=== PATIENT | male | born 1945 | race Caucasian/White ===

== ENCOUNTER 2019-10-30 18:42 | Inpatient (IN) | payer MEDICARE, MEDICAID, OTHER ==
[2019-10-30] MEDS ORDERED: Bisacodyl 5 MG TAB PO PRN (20:51)
[2019-10-30] MEDS ORDERED: Senokot S 8.6-50 MG TAB PO PRN (20:51)
[2019-10-30] MEDS: Atorvastatin Calcium 40 MG TAB PO SCH (21:22)
[2019-10-30] MEDS: Famotidine 20 MG TAB PO SCH (21:23)
[2019-10-31] MEDS: Levothyroxine Sodium 112 MCG TAB PO SCH (05:21)
[2019-10-31 05:40] LABS: #Monocytes 0.3 thou/uL (0.11-0.59); #Neutrophils 3.2 thou/uL (1.40-6.50); %Basophils 0.7 % (0.0-1.0); %Eosinophils 0.1 % (0.0-10.0); %Lymphocytes 22.2 % (21.0-51.0); %Monocytes 5.7 % (0.0-10.0); %Neutrophils 71.2 % (42.0-75.0); Hemoglobin 14.4 g/dL (14.0-18.0); Mean Corpuscular HGB CONC 32.5 g/dL (32.0-36.0); Mean Corpuscular Hemoglobin 31.1 pg (27.0-31.0); Mean Corpuscular Volume 95.6 fL (78.0-98.0); Mean Platelet Volume 12.9 fL (7.4-10.4); Platelet Count 81 thou/uL (130-400); Platelet Morphology Comment Appears Decreased; RBC Distribution Width 10.7 % (11.5-14.5); RBC Morphology Normal; Red Blood Cell (RBC) Count 4.65 mill/uL (4.70-6.10); White Blood Cell (WBC) Count 4.4 thou/uL (4.8-10.8)
[2019-10-31 05:49] LABS: ALT (SGPT) 37 U/L (8-55); AST (SGOT) 35 U/L (5-34); Albumin 3.1 g/dL (3.4-4.8); Alkaline Phosphatase 66 U/L (40-110); Anion Gap 14 mmol/L (10-20); BUN (Urea Nitrogen) 18 mg/dL (8.4-25.7); Bilirubin, Total 0.4 mg/dL (0.2-1.2); Calc. Creatinine Clearance 92 mL/min (70-130); Carbon Dioxide 24 mmol/L (23-31); Chloride 102 mmol/L (98-107); Estimated GFR-MDRD 80; Globulin 2.9 g/dL (2.4-3.5); Glucose 105 mg/dL (83-110); Potassium 3.3 mmol/L (3.5-5.1); Sodium 137 mmol/L (136-145)
[2019-10-31] MEDS ORDERED: busPIRone HCl 5 MG TAB PO SCH (09:00)
[2019-10-31] MEDS ORDERED: Enoxaparin Sodium 40 MG/0.4 ML SYRINGE SC SCH (09:00)
[2019-10-31] MEDS ORDERED: Amlodipine 5 MG TAB PO SCH (09:00)
[2019-10-31] MEDS ORDERED: Potassium Chloride 20 MEQ TAB PO SCH (09:00)
[2019-10-31] MEDS: Famotidine 20 MG TAB PO SCH ×2 (10:03→20:56)
[2019-10-31] MEDS: Acetaminophen 325 MG TAB PO PRN ×2 (10:04→14:24)
[2019-10-31] MEDS: Aspirin 325 mg Enteric Coated Tablet PO SCH (10:04)
[2019-10-31] MEDS: busPIRone HCl 5 MG TAB PO SCH ×2 (10:05→20:56)
[2019-10-31] MEDS: Amlodipine 5 MG TAB PO SCH (10:22)
[2019-10-31] MEDS: Atorvastatin Calcium 40 MG TAB PO SCH (20:56)
--- NOTE | 2019-11-01 05:35 | HP ---
HISTORY OF PRESENT ILLNESS: This is a pleasant 74-year-old male who originally presented to [facility] in [place] for weakness that his sister had noticed. He was brought in by her. Workup for CVA in the emergency room was largely unremarkable. Chest x-ray was unremarkable. Urinalysis was also unremarkable. Urine drug screen was negative in the ER. Blood work in the ER was glucose 113 and troponin was negative. Negative white count. H&H unremarkable. He was admitted to the stroke unit for continued workup of his generalized weakness. He underwent a brain CT, brain MRI, and carotid Doppler study and an EEG study. EEG was consistent with mild generalized nonspecific cerebral dysfunction, but no ictal or interictal epileptiform abnormalities were seen according to the report. The brain MRI showed no evidence of acute intracranial process and the carotid Doppler showed no evidence of hemodynamically significant stenosis, no significant plaque bilaterally. Overall, the patient had a negative workup for CVA and the patient was transferred here for PT and OT Services. The patient was originally accepted to [facility], but prior to discharge, a COVID test was performed as a routine protocol and the COVID test came back positive. [facility] unable to [facility] COVID patients, so he was transferred to [facility] for continued PT and OT Services. The patient has had no COVID symptoms and he denies any cough, congestion, rhinorrhea, nausea, or vomiting in the past month leading up to his hospitalization and he denies any cough, congestion, rhinorrhea, nausea, or vomiting at the current hospital stay. PAST MEDICAL HISTORY: Headaches, gout, peripheral edema, hypertension, hypothyroidism. PAST SURGICAL HISTORY: Thyroidectomy. SOCIAL HISTORY: Denies any drug use or alcohol use. Denies any previous or current tobacco abuse. PHYSICAL EXAMINATION: VITAL SIGNS: Temperature 98.5 Fahrenheit, pulse 87, respiratory rate 18, O2 saturation 94% on room air, blood pressure 128/78. GENERAL: A well-appearing 74-year-old male, in no acute distress. No respiratory distress. The patient is on room air. HEENT: EOMI. PERRLA. No rhinorrhea seen. RESPIRATORY: Clear to auscultation bilaterally. No cough. No wheezes. CARDIOVASCULAR: Regular rate and rhythm. No murmurs, gallops, or rubs. NECK: No carotid bruits. No JVD. ABDOMEN: Soft, nontender to palpation. NEUROLOGIC: Tread Builder strength equal bilaterally. Biceps flexion equal bilaterally. Triceps flexion equal bilaterally, 4/5 for these strengths. Hip flexion 4/5 and dorsiflexion/plantarflexion of 3/5 bilaterally. Overall, the patient has weakness in the lower extremities more than the upper extremities. PSYCHIATRIC: The patient is alert and oriented to place and self, but not time. Cooperative. No SI or HI. No andrea or psychosis. LABORATORY VALUES: Today, white blood cell 12.4, H&H of 14.4 and 44.4, platelet count is low at 81. Chemistry; sodium 137, potassium 3.3, chloride 102, CO2 of 24, BUN and creatinine of 18 and 0.93, GFR 80. AST 35, ALT 37, albumin 3.1. ASSESSMENT: 1. Chronic deconditioning requiring PT and OT Services. 2. Incidental COVID positive test. 3. Gout. 4. Hypertension. 5. Hyperlipidemia. 6. Hypothyroidism, status post thyroidectomy. 7. Hypokalemia. PLAN: 1. The patient is in need of PT and OT Services for deconditioning. 2. The patient has a positive COVID test but he is currently asymptomatic. Per hospital protocol, the patient will not need negative pressure room and can be put on the floor. Droplet, contact, and airborne precautions initiated. I spoke with nursing supervisory cbp officer and ensured that proper PPE is available at the door. Donning and doffing instructions are laid out in the hospital as well. The patient has no indication for treatment at this time. We will continue to monitor the patient and continue to monitor his labs as he goes forward. Notify provider for any new- onset fever, nausea, or vomiting. 3. The patient is stable at this time, monitor for any changes in that regard. 4. Continue the patient's antihypertensives. 5. Continue the patient's home BuSpar. 6. Continue atorvastatin. 7. Originally put VTE prophylaxis. But patient has thrombocytopenia, so this was d/c'd. 8. GI prophylaxis with famotidine. 9. Continue the patient's home levothyroxine. 10. Gave the patient 40 mEq of potassium today, we will continue to monitor with labs. Added on magnesium to morning lab work as well. Overall, this is a well-appearing 74-year-old man who is in need of PT and OT Services for deconditioning. I will continue to monitor his COVID status and if the patient is requiring more aggressive treatment, we will speak with Infectious Diseases for further recommendations. Job ID: [id number] JOSE
[2019-11-01] MEDS: Levothyroxine Sodium 112 MCG TAB PO SCH (05:42)
[2019-11-01] MEDS: Amlodipine 5 MG TAB PO SCH (08:22)
[2019-11-01] MEDS: busPIRone HCl 5 MG TAB PO SCH ×2 (08:23→20:51)
[2019-11-01] MEDS: Aspirin 325 mg Enteric Coated Tablet PO SCH (08:23)
[2019-11-01] MEDS: Famotidine 20 MG TAB PO SCH ×2 (08:23→20:51)
[2019-11-01] MEDS: Mag-Al Plus 1200 MG/1200 MG/120 MG/30 ML UDCUP PO PRN (14:54)
--- NOTE | 2019-11-01 15:17 | PRG ---
DATE OF SERVICE: 11/01/2019 SUBJECTIVE: Mr. Patterson is doing well, however, he is requiring frequent redirection because he does not always remember why he is here. He is participating in therapy well. All precautions are being followed. Today, the patient reports that he has new- onset nausea with epigastric pain. This occurred after he ate his morning meal. No cough. No congestion. No new COVID symptoms. REVIEW OF SYSTEMS: GENERAL: No fever or chills. RESPIRATORY: No cough or congestion. CV: No palpitations or chest pain. GI: Epigastric burning pain with nausea. Denied any vomiting. OBJECTIVE: VITAL SIGNS: Temperature 97.7, pulse 73, respirations 20, O2 sats 93 on room air, and blood pressure 125/65. GENERAL: Well-appearing, well-groomed, well-dressed, in no acute distress. HEENT: PERRLA. EOMI. CV: Regular rate and rhythm. No murmurs, gallops or rubs. RESPIRATORY: Clear to auscultation bilaterally. No wheezes. GI: Tender to palpation at the epigastrium. Nontender elsewhere. Bowel sounds present x4 quadrants. No masses felt. LABORATORY DATA: No new labs today. RADIOLOGICAL DATA: No new radiology. ASSESSMENT: 1. Chronic deconditioning, requiring PT and OT services. 2. Incidental COVID positive test. 3. Gout. 4. Hypertension. 5. Hyperlipidemia. 6. Hypothyroidism, status post thyroidectomy. 7. Hypokalemia. PLAN: 1. Continue PT and OT services for deconditioning. 2. Again, the patient has an incidental positive COVID test with no symptoms at this time. The patient does have nausea with epigastric pain; however, this is more of a gastritis rather than a true COVID symptom. However, we will absolutely continue COVID precautions as per protocol. The patient does not have any respiratory symptoms requiring any kind of nebulizer treatment. 3. Continue the patient's antihypertensives. 4. Continue the patient's home BuSpar. 5. Continue atorvastatin. 6. Switch VTE prophylaxis from Lovenox to compression stockings. 7. The patient does have asymptomatic thrombocytopenia. We will continue to monitor this with lab work. If he were to develop nose bleed or any kind of purpura, then we would need to investigate this. 8. GI prophylaxis with famotidine. 9. Continue home levothyroxine. 10. CBC and CMP in the morning. Job ID: [id number] MTDD
[2019-11-01] MEDS: Atorvastatin Calcium 40 MG TAB PO SCH (20:51)
[2019-11-02] MEDS: Levothyroxine Sodium 112 MCG TAB PO SCH (05:26)
[2019-11-02 05:45] LABS: White Blood Cell (WBC) Count 4.6 thou/uL (4.8-10.8)
[2019-11-02 05:46] LABS: Hemoglobin 14.3 g/dL (14.0-18.0); Mean Corpuscular HGB CONC 32.3 g/dL (32.0-36.0); Mean Corpuscular Hemoglobin 30.9 pg (27.0-31.0); Mean Corpuscular Volume 95.7 fL (78.0-98.0); Mean Platelet Volume 13.4 fL (7.4-10.4); Platelet Count 99 thou/uL (130-400); RBC Distribution Width 10.9 % (11.5-14.5); Red Blood Cell (RBC) Count 4.61 mill/uL (4.70-6.10)
[2019-11-02 05:47] LABS: Platelet Morphology Comment Appears Decreased; RBC Morphology Normal
[2019-11-02 05:48] LABS: #Lymphocytes 1.2 thou/uL (1.20-3.40); #Monocytes 0.5 thou/uL (0.11-0.59); #Neutrophils 3.6 thou/uL (1.40-6.50); %Basophils 2.2 % (0.0-1.0); %Eosinophils 3.3 % (0.0-10.0); %Lymphocytes 21.1 % (21.0-51.0); %Monocytes 8.7 % (0.0-10.0); %Neutrophils 64.7 % (42.0-75.0)
[2019-11-02 05:49] LABS: #Basophils 0.1 thou/uL (0.0-0.2); #Eosinphils 0.2 thou/uL (0.0-0.7)
[2019-11-02 05:51] LABS: ALT (SGPT) 39 U/L (8-55); AST (SGOT) 35 U/L (5-34); Albumin 3.1 g/dL (3.4-4.8); Alkaline Phosphatase 72 U/L (40-110); Anion Gap 13 mmol/L (10-20); BUN (Urea Nitrogen) 15 mg/dL (8.4-25.7); Bilirubin, Total 0.4 mg/dL (0.2-1.2); Calc. Creatinine Clearance 89 mL/min (70-130); Calcium 8.4 mg/dL (7.8-10.44); Chloride 102 mmol/L (98-107); Estimated GFR-MDRD 77; Globulin 2.9 g/dL (2.4-3.5); Glucose 100 mg/dL (83-110); Sodium 141 mmol/L (136-145)
[2019-11-02 05:58] LABS: Carbon Dioxide 30 mmol/L (23-31)
[2019-11-02] MEDS: Aspirin 325 mg Enteric Coated Tablet PO SCH (08:45)
[2019-11-02] MEDS: busPIRone HCl 5 MG TAB PO SCH ×2 (08:45→20:52)
[2019-11-02] MEDS: Famotidine 20 MG TAB PO SCH ×2 (08:45→20:51)
[2019-11-02] MEDS: Amlodipine 5 MG TAB PO SCH (08:45)
[2019-11-02] MEDS: Acetaminophen 325 MG TAB PO PRN (10:53)
[2019-11-02] MEDS: Mag-Al Plus 1200 MG/1200 MG/120 MG/30 ML UDCUP PO PRN (17:25)
[2019-11-02] MEDS: Atorvastatin Calcium 40 MG TAB PO SCH (20:51)
[2019-11-03] MEDS: Acetaminophen 325 MG TAB PO PRN ×3 (04:28→14:15)
[2019-11-03] MEDS: Levothyroxine Sodium 112 MCG TAB PO SCH (04:29)
[2019-11-03] MEDS: Aspirin 325 mg Enteric Coated Tablet PO SCH (08:36)
[2019-11-03] MEDS: Amlodipine 5 MG TAB PO SCH (08:36)
[2019-11-03] MEDS: Famotidine 20 MG TAB PO SCH ×2 (08:37→19:55)
[2019-11-03] MEDS: busPIRone HCl 5 MG TAB PO SCH ×2 (08:37→19:55)
[2019-11-03] MEDS: Mag-Al Plus 1200 MG/1200 MG/120 MG/30 ML UDCUP PO PRN (10:40)
[2019-11-03] MEDS: Ondansetron ODT 4 MG TAB PO PRN (14:15)
[2019-11-03] MEDS: Atorvastatin Calcium 40 MG TAB PO SCH (19:55)
[2019-11-04] MEDS: Levothyroxine Sodium 112 MCG TAB PO SCH (06:13)
[2019-11-04] MEDS: Amlodipine 5 MG TAB PO SCH (07:31)
[2019-11-04] MEDS: Aspirin 325 mg Enteric Coated Tablet PO SCH (07:32)
[2019-11-04] MEDS: busPIRone HCl 5 MG TAB PO SCH ×2 (07:32→20:12)
[2019-11-04] MEDS: Ondansetron ODT 4 MG TAB PO PRN (07:32)
[2019-11-04] MEDS: Famotidine 20 MG TAB PO SCH ×2 (07:32→20:12)
[2019-11-04] MEDS: Acetaminophen 325 MG TAB PO PRN ×2 (09:47→20:12)
--- NOTE | 2019-11-04 13:29 | PRG ---
DATE OF SERVICE: 11/04/2019 SUBJECTIVE: The patient again is doing well; however, he is still agitated and concerned as to why he is here. We frequently reorient him, telling him that he is here for physical therapy and strengthening; however, he is confused why he has to have all these precautions and why he cannot walk around. We reinforced that he is under COVID precautions, and we want to be safe around our employees and staff and that we wound not want any potential infection to occur if he were to walk around. He states understanding; however, he is still agitated by us. He is also concerned that he cannot talk to his or see his in the hospital, but when we tell him again because of possible protocol and COVID precautions, he is not able to have visitors. Medically, he is doing well. No concerns. There were no acute events overnight. REVIEW OF SYSTEMS: Denies any fever or chills. No shortness of breath, cough, or congestion. He does report some continued epigastric pain that is relieved with Zofran and Maalox. OBJECTIVE: VITAL SIGNS: Temperature 95.5, pulse 65, respiratory rate 18. His O2 saturations this morning are 90% on room air. Over the weekend, they have been in the mid 90s on room air. Blood pressure 121/57. GENERAL: Well appearing, well developed. No acute distress. HEENT: No lymphadenopathy. No carotid bruits. No rhinorrhea. RESPIRATORY: Clear to auscultation bilaterally. No wheezes or rhonchi. CARDIOVASCULAR: Regular rate and rhythm. No murmurs, gallops, or rubs. GI: Mild epigastric tenderness. Bowel sounds positive x4. No masses felt. LABORATORY DATA: No new labs. No radiology. ASSESSMENT: 1. Chronic deconditioning, requiring PT and OT services. 2. Incidental COVID positive test. 3. Gout. 4. Hypertension. 5. Hyperlipidemia. 6. Hypothyroid status post thyroidectomy. 7. Hypokalemia, resolved. PLAN: 1. Continue PT and OT services for deconditioning. 2. Again, the patient has a positive COVID test with no active symptoms. Therefore, we will keep the contact, droplet, and airborne precautions in place. 3. Again, reiterated to the patient that he is not able to have visitors at this time because of protocol and that he is not able to leave his room freely because of risk of infecting nursing staff and other employees. 4. Continue the patient's antihypertensive. 5. Continue home BuSpar. 6. Continue atorvastatin. 7. Continue compression stockings. 8. Thrombocytopenia, still asymptomatic. We will continue to follow. 9. Gastrointestinal prophylaxis with famotidine. 10. Continue home levothyroxine. Job ID: [id number] MTDD
[2019-11-04 16:03] VITALS: BMI 26.8
[2019-11-04] MEDS ORDERED: OLANZapine 5 MG TAB PO SCH (19:45)
[2019-11-04] MEDS: Atorvastatin Calcium 40 MG TAB PO SCH (20:12)
[2019-11-05] MEDS: Levothyroxine Sodium 112 MCG TAB PO SCH (05:14)
[2019-11-05] MEDS: Aspirin 325 mg Enteric Coated Tablet PO SCH (08:20)
[2019-11-05] MEDS: busPIRone HCl 5 MG TAB PO SCH ×2 (08:20→20:29)
[2019-11-05] MEDS: Famotidine 20 MG TAB PO SCH ×2 (08:21→20:29)
[2019-11-05] MEDS: Amlodipine 5 MG TAB PO SCH (08:21)
[2019-11-05] MEDS: Acetaminophen 325 MG TAB PO PRN (08:53)
--- NOTE | 2019-11-05 09:22 | PRG ---
DATE OF SERVICE: 11/05/2019 SUBJECTIVE: This is a pleasant 74-year-old male, who was originally admitted for PT and OT services. Overnight, the patient was restless and agitated and not able to sleep. I started Zyprexa p.r.n. 5 mg for him. Nursing staff this morning says that he slept through the night and he is doing much better today. His mood has improved today and the patient is much more cooperative and cheerful today. He is working with PT well. No falls. REVIEW OF SYSTEMS: Denies any fever, chills, headache, cough, rhinorrhea, nausea, vomiting or calf pain. OBJECTIVE: VITAL SIGNS: Temp 96.7, pulse 85, respiratory rate 20, O2 saturation 96% on room air, and blood pressure 129/77. GENERAL: Well appearing, well developed, in no acute distress. HEENT: No rhinorrhea. No cervical lymphadenopathy. No carotid bruits. RESPIRATORY: Clear to auscultation bilaterally. No wheezes or rhonchi. CV: Regular rate and rhythm. No murmurs, gallops or rubs. GI: Nontender in all 4 quadrants. No masses felt. EXTREMITIES: Nontender to calves. ASSESSMENT: 1. Deconditioning, requiring PT and OT services. 2. Incidental COVID positive test. 3. Gout. 4. Hypertension. 5. Hyperlipidemia. 6. Hypothyroid, status post thyroidectomy. 7. Hypokalemia, resolved. PLAN: 1. Continue with PT and OT services for deconditioning. 2. The patient has no new COVID symptoms; however, we will continue precautions at this time. 3. The patient's mood improved with sleep. 4. Continue the patient's antihypertensives. 5. Continue home BuSpar. 6. Continue atorvastatin. 7. Continue compression stockings for VTE prophylaxis. 8. GI prophylaxis with famotidine. 9. Continue home levothyroxine. Overall, the patient improved with sleep overnight and is more cooperative today. We will continue the Zyprexa p.r.n. going forward if the patient requires this as it seemed to have helped. Job ID: [id number] MTDD
[2019-11-05] MEDS ORDERED: Ondansetron ODT 4 MG TAB SL PRN (10:00)
[2019-11-05] MEDS: Atorvastatin Calcium 40 MG TAB PO SCH (20:29)
[2019-11-05] MEDS: OLANZapine 5 MG TAB PO PRN (23:11)
[2019-11-06 05:14] LABS: White Blood Cell (WBC) Count 5.8 thou/uL (4.8-10.8)
[2019-11-06 05:15] LABS: Hemoglobin 13.3 g/dL (14.0-18.0); Mean Corpuscular HGB CONC 31.9 g/dL (32.0-36.0); Mean Corpuscular Hemoglobin 30.9 pg (27.0-31.0); Mean Corpuscular Volume 96.6 fL (78.0-98.0); Mean Platelet Volume 12.4 fL (7.4-10.4); Platelet Count 158 thou/uL (130-400); RBC Distribution Width 10.7 % (11.5-14.5)
[2019-11-06 05:16] LABS: %Basophils 0.8 % (0.0-1.0); %Eosinophils 3.6 % (0.0-10.0); %Monocytes 6.9 % (0.0-10.0); %Neutrophils 54.7 % (42.0-75.0); Manual Diff?? NO
[2019-11-06 05:17] LABS: #Eosinphils 0.2 thou/uL (0.0-0.7); #Monocytes 0.4 thou/uL (0.11-0.59); #Neutrophils 3.2 thou/uL (1.40-6.50); Platelet Morphology Comment Appears Adequate
[2019-11-06 05:26] LABS: ALT (SGPT) 44 U/L (8-55); AST (SGOT) 27 U/L (5-34); Alkaline Phosphatase 88 U/L (40-110); Anion Gap 14 mmol/L (10-20); BUN (Urea Nitrogen) 19 mg/dL (8.4-25.7); Bilirubin, Total 0.3 mg/dL (0.2-1.2); Calc. Creatinine Clearance 88 mL/min (70-130); Calcium 8.2 mg/dL (7.8-10.44); Carbon Dioxide 23 mmol/L (23-31); Chloride 110 mmol/L (98-107); Estimated GFR-MDRD 75; Globulin 2.7 g/dL (2.4-3.5); Glucose 114 mg/dL (83-110); Potassium 3.9 mmol/L (3.5-5.1); Protein, Total 5.7 g/dL (5.8-8.1); Sodium 143 mmol/L (136-145)
[2019-11-06] MEDS: Levothyroxine Sodium 112 MCG TAB PO SCH (05:30)
[2019-11-06] MEDS: Amlodipine 5 MG TAB PO SCH (08:24)
[2019-11-06] MEDS: busPIRone HCl 5 MG TAB PO SCH ×2 (08:25→20:16)
[2019-11-06] MEDS: Famotidine 20 MG TAB PO SCH ×2 (08:25→20:16)
[2019-11-06] MEDS: Aspirin 325 mg Enteric Coated Tablet PO SCH (08:25)
[2019-11-06] MEDS: Atorvastatin Calcium 40 MG TAB PO SCH (20:16)
[2019-11-06] MEDS: OLANZapine 5 MG TAB PO PRN (20:18)
[2019-11-07] MEDS: Levothyroxine Sodium 112 MCG TAB PO SCH (05:14)
[2019-11-07 07:25] VITALS: BP 135/84; TEMP 96.3
[2019-11-07] MEDS: Amlodipine 5 MG TAB PO SCH (08:12)
[2019-11-07] MEDS: busPIRone HCl 5 MG TAB PO SCH (08:13)
[2019-11-07] MEDS: Famotidine 20 MG TAB PO SCH (08:13)
[2019-11-07] MEDS: Aspirin 325 mg Enteric Coated Tablet PO SCH (08:13)
--- NOTE | 2019-11-07 12:32 | PRG ---
DATE OF SERVICE: 11/06/2019 SUBJECTIVE: This is a pleasant 74-year-old male, who was originally admitted for PT and OT services. At the moment the patient is doing well. He continues however to be obstinate with our recommendations. He is frequently walking around the room , agitated, and is not cooperating with Physical Therapy. Spoke to nursing staff , assisted living facility that he is going to be discharged to, they said okay to go back to the assisted living apartment; however, he will need to be quarantined for 14 days and he will need someone to bring him meals. His sister would not be available as she is having heart surgery, however, she said that she might be able to coordinate with someone and set up care. He would likely benefit from home health or physical therapy. However, he is not working with them at this time. most likely will be able to d /c to apartment. We will continue to be in touch with the sister. REVIEW OF SYSTEMS: Denied any chills, headache, cough, pain. PHYSICAL EXAMINATION: VITAL SIGNS: Temperature 98 Fahrenheit, pulse 65, respiratory rate 18, O2 saturations 99, blood pressure 121/77. GENERAL: Well-appearing, well-dressed, 74-year-old male. RESPIRATORY: Clear to auscultation bilaterally. CARDIOVASCULAR: Regular rate and rhythm. GI: Nontender to palpation in all 4 quadrants. No masses. SKIN: No cyanosis. No ulcer. LABORATORY WORK: White cells 5.8. Hemoglobin and hematocrit are 13.3 and 41.6, platelets 158.6. Sodium is 143, potassium 3.9, chloride 110, carbon dioxide 23 , BUN 19, creatinine 0.98, AST 27, ALT 44, albumin 3.0. ASSESSMENT: 1. Deconditioning, requiring PT and OT services. 2. Incidental COVID positive test. 3. Gout. 4. Hypertension. 5. Hyperlipidemia. 6. Hypothyroid, status post thyroidectomy. 7. Hypokalemia, resolved. PLAN: Is to most likely discharge in the morning with coordinated care between sister and caregiver. When he goes back to his apartment, the patient to quarantine for 14 days in his apartment. They will monitor him for any symptoms when he was back to his assisted living. The patient will go back on his home antihypertensives. He will continue his BuSpar and atorvastatin and we will continue to stay in touch with the sister for discharge planning. Job ID: [id number] MTDD
--- NOTE | 2019-11-07 16:14 | DIS ---
DATE OF ADMISSION: 10/30/2019 DATE OF DISCHARGE: 11/07/2019 HISTORY: Mr. Patterson is a 74-year-old male, who originally presented to [facility] in [place] for weakness that his sister had noticed. There he has received a CVA workup, which was unremarkable. Head CT, brain MRI, and carotid Doppler were all unremarkable as the patient was going to be transitioned to [facility] inpatient. It was found that he was COVID positive, which prevented him from being transferred to [facility]. He was transferred here to [facility] for continued PT and OT services. Throughout his hospital stay here, the patient denied any new COVID symptoms. He has not had a cough or rhinorrhea. He has had some epigastric pain; however, this is related to food and thought to be GERD. The patient has been uncooperative with physical therapy and has not participated in many therapies sessions. The patient also has to be reoriented and redirected as to why he is here. He is very concerned with wanting to walk around; however, we have to keep informing him that these are due to the COVID precautions. The patient will be discharged home in stable condition. He is going back to [facility] where he has an apartment. The patient will self quarantine for 14 days there per their regulations. After that, he will be cleared. The patient is ambulating well with no assistance and he is back to his baseline. PT has recommended the patient to use a rolling walker when he is at home. However, the patient stated that he does not need to use this and insists on walking on his own. Again, the patient will be discharged to [facility] and quarantine further protocol. REVIEW OF SYSTEMS: The patient denies any nausea, vomiting, diarrhea, fever, chills, shortness of breath, cough, muscle or calf tenderness. OBJECTIVE: VITAL SIGNS: Temperature 99 Fahrenheit, pulse 79, respiratory rate 18, O2 sats 93 on room air, and blood pressure 135/84. PHYSICAL EXAMINATION: GENERAL: Well-appearing 74-year-old male, in no acute distress. HEENT: No rhinorrhea. No cervical lymphadenopathy. No carotid bruits. RESPIRATORY: Clear to auscultation bilaterally. No wheezes. HEART: Regular rate and rhythm. No murmurs, gallops or rubs. GI: Abdomen is soft, nontender to palpation in all 4 quadrants. No masses felt. EXTREMITIES: No cyanosis, no wounds, no ulcers. LABORATORY DATA: Significant laboratory in this visit, white cells ranged between 4.4 and 5.8, hemoglobin 13.3 to 14.4, hematocrit 41.6 to 44.4, platelets initially low at 81, are now up to 158 on discharge. The patient's potassium initially was 3.3, now 3.9. Sodium 137 to 149, carbon dioxide 24 to 30, BUN and creatinine unremarkable, GFR 80. AST and ALT both unremarkable during the stay. Albumin low during his stay at 3.0. ASSESSMENT: 1. Deconditioning, requiring PT and OT services. 2. Incidental COVID positive test. 3. Hypothyroid. 4. Hypertension. PLAN: The patient will be discharged to assisted living in stable condition to [facility]. The patient will self quarantine 14 days per [place] protocol. The patient has had no COVID symptoms during his stay here. The patient has remained stable in no acute distress or respiratory distress. He has been somewhat compliant with therapy sessions here, but the patient is refusing physical therapy at home, he feels that he does not need it. Physical Therapy has recommended using a rolling walker at home for increased safety; however, again, the patient says that he does not need it. The patient will be discharged with a regular diet and activity as tolerated. The patient will need to follow up with his PCP next week or 2 for a post-hodge followup. The patient will need to be retested for any new COVID symptoms. Job ID: [id number] [facility]
== END 2019-11-07 10:30 | disposition home or self-care (01) | DRG 947 ==
LOC: NAV ACUTE 18:42
PROVIDERS: ADMIT Family Medicine; ATTEND Family Medicine
DX: R53.81 Other malaise (principal); U07.1 COVID-19; E03.9 Hypothyroidism, unspecified; I10 Essential (primary) hypertension; K21.9 Gastro-esophageal reflux disease without esophagitis; M10.9 Gout, unspecified; E87.6 Hypokalemia; D69.6 Thrombocytopenia, unspecified
CPT/HCPCS: 80053; 83735; 85025; J1650; Q0162